=== PATIENT | male | born 1970 | race Caucasian/White ===

== ENCOUNTER 2019-08-23 15:32 | Emergency (ER) | payer BC ==
[~2019-08-23] VITALS: Ht 188 cm; Wt 165.6 kg
[~2019-08-23 15:32] MED LIST: ADVAIR HFA 1112 UNIT INH; ALBUTEROL NEB; AVELOX 400 MG400 MG PO; PREDNISONE 20 M20 M1 PO; PREDNISONE 5 MG5 M1 PO; PROAIR HFA8.5 GM; SINGULAIR 10 MG10 M1 PO
[2019-08-23] MEDS ORDERED: METFORMIN HCL1000 MG PO (15:44)
[2019-08-23] MEDS ORDERED: AMLODIPINE BESY10 MG PO (15:44)
[2019-08-23 15:54] LABS: URINE BILIRUBIN NEGATIVE (Negative); URINE BLOOD 3+ (Negative); URINE CLARITY CLEAR; URINE COLOR YELLOW; URINE GLUCOSE-RANDOM* 3+ (Negative); URINE KETONES NEGATIVE (Negative); URINE LEUKOCYTES-REFLEX NEGATIVE (Negative); URINE NITRITE-REFLEX NEGATIVE (Negative); URINE PROTEIN (DIPSTICK) NEGATIVE (Negative); URINE UROBILINOGEN 0.2 E.U./dl (0.2-1.0)
[2019-08-23 16:03] LABS: BACTERIA-REFLEX 1-9 Few /HPF (None Seen); CASTS None Seen /LPF (None Seen); CRYSTALS None Seen /LPF (None Seen); SQUAMOUS None Seen /LPF (0-3); URINE WBC-REFLEX None Seen /HPF (0-5)
[2019-08-23 16:04] LABS: ABSOLUTE NEUTROPHILS 9.9 thou/uL (1.4-8.2); BASOPHILS 0.4 % (0.0-2.0); EOSINOPHILS 1.7 % (0.0-3.0); HEMOGLOBIN 16.6 gm/dL (14.0-18.0); LYMPHOCYTES 10.3 % (24.0-44.0); MCH 29.8 pg (26.0-34.0); MCHC 33.2 g/dL (28.0-37.0); MCV 89.7 fL (80.0-100.0); MONOCYTES 5.4 % (1.0-8.0); PLATELET COUNT 213 thou/uL (150-400); POLYS 82.2 % (36.0-66.0); RBC 5.58 mil/uL (4.50-6.00); RDW 13.1 % (10.5-14.5)
[2019-08-23 16:12] LABS: CALCIUM 9.5 mg/dL (8.5-10.1); CREATININE 1.3 mg/dL (0.7-1.3); POTASSIUM 4.4 mmol/L (3.5-5.1)
[2019-08-23 16:18] LABS: ALBUMIN 3.8 g/dL (3.4-5.0); TOTAL BILIRUBIN 0.4 mg/dL (<0.1-1.0); TOTAL PROTEIN 8.1 g/dL (6.4-8.2)
[2019-08-23] MEDS ORDERED: NORCO 5-325 TA1 EAC1 PO (16:30)
[2019-08-23 16:33] VITALS: BP 122/79
== END 2019-08-23 16:35 | disposition home or self-care (01) ==
LOC: ER 15:32
PROVIDERS: Emergency Medicine
DX: N20.0 Calculus of kidney (principal); J45.909 Unspecified asthma, uncomplicated; I10 Essential (primary) hypertension

== ENCOUNTER 2020-04-21 15:38 | Emergency (ER) | payer BC ==
[~2020-04-21] VITALS: Ht 188 cm; Wt 156.5 kg
[~2020-04-21 15:38] MED LIST changes: +AMLODIPINE BESY10 MG PO; +METFORMIN HCL1000 MG PO; +NORCO 5-325 TA1 EAC1 PO
[2020-04-21 17:01] LABS: ABSOLUTE NEUTROPHILS 6.4 thou/uL (1.4-8.2); BASOPHILS 0.6 % (0.0-2.0); EOSINOPHILS 3.5 % (0.0-3.0); HEMATOCRIT 47.7 % (42.0-52.0); HEMOGLOBIN 16.3 gm/dL (14.0-18.0); LYMPHOCYTES 13.9 % (24.0-44.0); MCH 30.2 pg (26.0-34.0); MCHC 34.3 g/dL (28.0-37.0); MCV 88.2 fL (80.0-100.0); MONOCYTES 10.3 % (1.0-8.0); PLATELET COUNT 192 thou/uL (150-400); POLYS 71.7 % (36.0-66.0); RBC 5.41 mil/uL (4.50-6.00); RDW 13.1 % (10.5-14.5)
[2020-04-21 17:07] LABS: ANION GAP 8 mmol/L (7-16); BUN 24 mg/dL (7-18); CALCIUM 8.7 mg/dL (8.5-10.1); CHLORIDE 102 mmol/L (98-107); CO2 27 mmol/L (21-32); GLUCOSE 298 mg/dL (74-106); POTASSIUM 4.2 mmol/L (3.5-5.1); SODIUM 137 mmol/L (136-145)
[2020-04-21 17:17] LABS: ALBUMIN 3.4 g/dL (3.4-5.0); LIPASE 125 U/L (73-393); SGOT 27 U/L (15-37); SGPT 51 U/L (30-65); TOTAL BILIRUBIN 0.7 mg/dL (<0.1-1.0); TOTAL PROTEIN 7.7 g/dL (6.4-8.2); TROPONIN-I <0.06 ng/mL (<0.06)
[2020-04-21 17:27] LABS: URINE BILIRUBIN NEGATIVE (Negative); URINE BLOOD 3+ (Negative); URINE CLARITY CLEAR; URINE COLOR YELLOW; URINE GLUCOSE-RANDOM* 2+ (Negative); URINE KETONES NEGATIVE (Negative); URINE LEUKOCYTES-REFLEX TRACE (Negative); URINE NITRITE-REFLEX NEGATIVE (Negative); URINE PROTEIN (DIPSTICK) NEGATIVE (Negative); URINE SPECIFIC GRAVITY 1.015 (1.005-1.035); URINE UROBILINOGEN 0.2 E.U./dl (0.2-1.0)
[2020-04-21 17:33] LABS: MUCUS 0-3 Light strn/LPF (None Seen); SQUAMOUS 4-10 Moderate /LPF (0-3)
[2020-04-21 17:35] LABS: URINE WBC-REFLEX 6-15 Few /HPF (0-5)
[2020-04-21 17:36] LABS: BACTERIA-REFLEX 1-9 Few /HPF (None Seen); CASTS None Seen /LPF (None Seen); URIC ACID CRYSTALS >10 Many /LPF (None Seen); URINE RBC 3-10 Few /HPF (0-2)
[2020-04-21 20:39] VITALS: BP 126/82
--- NOTE | 2020-04-22 14:27 | EKG ---
[facility] [place] [address] ELECTROCARDIOGRAM REPORT Name: ANN ROLLINS Room #: DEP [facility]Grant[facility] [id number] Admission: 04/21/20 Attend Phys: Discharge: 04/21/20 Date of : 74 Report #: [id number] THIS REPORT FOR: cc: FAM - Family physician unknown FAM - Family physician unknown Sergey Hoang MD ~ THIS REPORT FOR: //name// [facility] ED Test Date: 2020-04-21 Test Time: 16:19:56 Pat Name: ANN ROLLINS Department: Room: Gender: Clothing Examiner: [facility] : 1970 Requested By: Monty Beatty Order Number: [id number] MD: Sergey Hoang Measurements Intervals [place] Rate: 87 P: 5 [place]: 170 QRS: -51 QRSD: 107 T: -1 QT: 364 QTc: 438 Interpretive Statements Sinus rhythm Left anterior fascicular block Abnormal R-wave progression, late transition Compared to ECG 12/13/2011 20:42:38 Left anterior fascicular block now present Ectopic atrial tachycardia, multifocal no longer present Left-axis deviation no longer present Electronically Signed On 04-22-2020 14:25:23 CDT by Sergey Hoang [email or web address] <ELECTRONICALLY SIGNED> By: Sergey Hoang MD 04/22/20 1425 1619 1619 Sergey Hoang MD /EPI
== END 2020-04-21 20:42 | disposition short-term general hospital (02) ==
LOC: ER 15:38
PROVIDERS: Emergency Medicine
DX: N20.1 Calculus of ureter (principal); E11.9 Type 2 diabetes mellitus without complications; N17.9 Acute kidney failure, unspecified; J45.909 Unspecified asthma, uncomplicated; I10 Essential (primary) hypertension; Z87.442 Personal history of urinary calculi; Z79.899 Other long term (current) drug therapy

== ENCOUNTER 2020-06-02 17:02 | Emergency (ER) | payer OTHER ==
[~2020-06-02] VITALS: Ht 188 cm; Wt 149.7 kg
[2020-06-02] MEDS ORDERED: NAPROSYN500 MG PO (18:31)
[2020-06-02 18:43] VITALS: BP 132/81
== END 2020-06-02 18:46 | disposition home or self-care (01) ==
LOC: ER 17:02
DX: S63.501A Unspecified sprain of right wrist, initial encounter (principal); J45.909 Unspecified asthma, uncomplicated; I10 Essential (primary) hypertension; Z79.899 Other long term (current) drug therapy; V00.121A Fall from non-in-line roller-skates, initial encounter; Y93.51 Activity, roller skating (inline) and skateboarding; Y92.89 Other specified places as the place of occurrence of the external cause; Y99.8 Other external cause status